=== PATIENT | male | born 2000 | race Caucasian/White ===

== ENCOUNTER → 2024-07-03 | Outpatient (REF) | payer OTHER | LOC: M LAB REF 12:32 | PROVIDERS: ATTEND Nurse Practitioner Family | DX: L01.03 Bullous impetigo (principal) ==

== ENCOUNTER 2025-06-14 14:01 | Emergency (ER) | payer OTHER ==
[~2025-06-14] VITALS: Ht 175.3 cm; Wt 82.0 kg
[2025-06-14 14:07] VITALS: TEMP 98.1
[2025-06-14 15:39] VITALS: BP 121/79; O2SAT 100
== END 2025-06-14 16:08 | disposition home or self-care (01) ==
LOC: M ED 14:01
DX: K43.9 Ventral hernia without obstruction or gangrene (principal)